=== PATIENT | female | born 1945 | race Caucasian/White ===

== ENCOUNTER 2016-12-14 08:29 | Day surgery (SDC) | payer BC ==
--- NOTE | ~2016-12-14 | EGD ---
EGD REPORT [facility] [address] [place] [id number] NAME: JR MCKINNON : [birth year] STATUS : REG [facility]#: [id number] AGE: 71 ADM/REG DATE : 12/14/16 MR#: [id number] REPORT SERV DATE: 12/14/16 DICTATED BY: YUNIOR HORAN DATE: 12/14/16 REPORT STATUS : Draft TRANSCRIBED BY: [facility] DATE: 12/14/16 [facility] Patient Name: Jr Mckinnon Date of : 1945 Attending MD: YUNIOR HORAN MD Procedure Date No Time: 12/14/2016 Procedure: Colonoscopy Indications: High risk colon cancer surveillance: Personal history of non-advanced adenoma; last exam 2010. Patient Profile: Informed consent was obtained from the patient by me prior to the procedure. Risks, benefits, and alternatives were discussed including the risk of bleeding, perforation, infection, reaction to medicine, missed lesion, and cardiopulmonary complications. Referring MD: AMELIA MONTANO MD Medicines: Monitored Anesthesia Care Complications: No immediate complications. Procedure: Pre-Anesthesia Assessment: - ASA Grade Assessment: III - A patient with severe systemic disease. After I obtained informed consent, the scope was passed under direct vision. Throughout the procedure, the patient's blood pressure, pulse, and oxygen saturations were monitored continuously. The PCF [id number] was introduced through the anus and advanced to the cecum, identified by appendiceal orifice and ileocecal valve. The colonoscope was slowly withdrawn with careful examination all mucosal surfaces including specific attention around flexures and tip deflection behind folds; retroflexion performed in rectum. The colonoscopy was performed without difficulty. The patient tolerated the procedure well. The quality of the bowel preparation was adequate. The ileocecal valve, appendiceal orifice and rectum were photographed. Findings: A sessile polyp was found in the proximal ascending colon. The polyp was 10 mm in size. The polyp was removed with a cold snare. Resection and retrieval were complete. A few medium-mouthed diverticula were found in the sigmoid colon. Impression: - One 10 mm polyp in the proximal ascending colon. Resected and retrieved. - Diverticulosis in the sigmoid colon. EGD REPORT [address] [address] NAME: JR MCKINNON : [birth year] STATUS : REG [facility]#: [id number] AGE: 71 ADM/REG DATE : 12/14/16 MR#: [id number] REPORT SERV DATE: 12/14/16 DICTATED BY: YUNIOR HORAN DATE: 12/14/16 REPORT STATUS : Draft TRANSCRIBED BY: [employer] DATE: 12/14/16 Recommendation: - Patient has a contact number available for emergencies. The signs and symptoms of potential delayed complications were discussed with the patient. Return to normal activities tomorrow. Written discharge instructions were provided to the patient. - Regular diet. - Continue present medications. - Await pathology results. - Repeat colonoscopy for surveillance based on pathology results. Procedure Code(s): --- Professional --- 30579, Colonoscopy, flexible, proximal to splenic flexure; with removal of tumor(s), polyp(s), or other lesion(s) by snare technique Diagnosis Code(s): --- Professional --- D12.2, Benign neoplasm of ascending colon K57.30, Diverticulosis of large intestine without perforation or abscess without bleeding Z86.010, Personal history of colonic polyps CPT copyright 2013 [employer]. All rights reserved. The codes documented in this report are preliminary and upon cytogenetic technician review may be revised to meet current compliance requirements. YUNIOR HORAN MD 12/14/2016 10:39 AM This report has been signed electronically. Number of Addenda: 0 Note Initiated On: 12/14/2016 10:09 AM Scope Withdrawal Time 0 hours 13 minutes 41 seconds [id number] [id number]
[~2016-12-14 08:29] MED LIST: CALTRAT600 PO; COQ10100 MG OR; CYANO1000T PO; FISH-EPA1000 MG PO; FOSAMAX35 MG PO; GLUCOPHXR7 PO; GLUCPH8 PO; HCTZ25B PO; HYDROCHLOROT25 MG PO; LIPITOR10 PO; MULTIPLE VIT PO; NORV10 PO; NORV25 PO; PRILO PO; PRILOSEC40 MG PO; TENEX1 PO; VITAMIN C100 M1 PO; ZANTAC 150 PO; ZESTRIL20 MG PO
[2016-12-31] MEDS ORDERED: MEDS (13:53)
== END 2016-12-14 23:59 | disposition home or self-care (01) ==
LOC: DMU 08:29
PROVIDERS: Internal Medicine Gastroenterology
PROC: 0DBK8ZZ Excision of Ascending Colon, Via Natural or Artificial Opening Endoscopic (ICD-10-PCS; principal; 2016-12-14 09:30)
DX: Z12.11 Encounter for screening for malignant neoplasm of colon (principal); K63.5 Polyp of colon; I10 Essential (primary) hypertension; C85.90 Non-Hodgkin lymphoma, unspecified, unspecified site; E11.9 Type 2 diabetes mellitus without complications; E78.00 Pure hypercholesterolemia, unspecified; K29.70 Gastritis, unspecified, without bleeding; K21.9 Gastro-esophageal reflux disease without esophagitis; M81.0 Age-related osteoporosis without current pathological fracture; K57.30 Diverticulosis of large intestine without perforation or abscess without bleeding; Z86.010 Personal history of colon polyps; Z79.899 Other long term (current) drug therapy; Z79.84 Long term (current) use of oral hypoglycemic drugs; Z85.72 Personal history of non-Hodgkin lymphomas; Z90.89 Acquired absence of other organs; Z98.42 Cataract extraction status, left eye; Z96.1 Presence of intraocular lens; Z78.0 Asymptomatic menopausal state
CPT/HCPCS: 82962; 88305